=== PATIENT | male | born 1980 | race Two or more races ===

== ENCOUNTER 2023-01-30 23:18 | Emergency (ER) | payer SELFPAY ==
[~2023-01-30] VITALS: Ht 170.2 cm; Wt 60.0 kg
[2023-01-31 04:10] VITALS: BP 126/86
[2023-01-31] MEDS ORDERED: IBUPROFEN 800 MG TAB PO ONE (04:15)
== END 2023-01-31 04:25 | disposition home or self-care (01) ==
LOC: ER 23:18 → EDBD 23:18 → ER 01-31 04:25
DX: S86.912A Strain of unspecified muscle(s) and tendon(s) at lower leg level, left leg, initial encounter (principal); E78.5 Hyperlipidemia, unspecified; X50.1XXA Overexertion from prolonged static or awkward postures, initial encounter; Y93.89 Activity, other specified; Y92.89 Other specified places as the place of occurrence of the external cause; Y99.8 Other external cause status
CPT/HCPCS: 29505; 73560